=== PATIENT | male | born 1970 | race Caucasian/White ===

== ENCOUNTER 2021-01-26 13:31 | Emergency (ER) ==
[~2021-01-26] VITALS: Ht 182.9 cm; Wt 125.0 kg
[2021-01-26 13:32] VITALS: BP 167/92
== END 2021-01-26 16:19 | disposition left against medical advice (07) ==
LOC: M ED 13:31
DX: Z53.21 Procedure and treatment not carried out due to patient leaving prior to being seen by health care provider (principal)

== ENCOUNTER 2022-03-01 08:49 | Emergency (ER) | payer OTHER ==
[~2022-03-01] VITALS: Ht 182.9 cm; Wt 131.1 kg
[2022-03-01 13:46] VITALS: BP 170/104
== END 2022-03-01 14:00 | disposition home or self-care (01) ==
LOC: M ED 08:49
DX: S83.92XA Sprain of unspecified site of left knee, initial encounter (principal); M25.462 Effusion, left knee; M17.12 Unilateral primary osteoarthritis, left knee; X58.XXXA Exposure to other specified factors, initial encounter; Y92.099 Unspecified place in other non-institutional residence as the place of occurrence of the external cause; Y93.01 Activity, walking, marching and hiking; I10 Essential (primary) hypertension; E78.5 Hyperlipidemia, unspecified

== ENCOUNTER → 2022-03-13 | Outpatient (CLI) | payer OTHER | LOC: M SOG 08:05 | PROVIDERS: ATTEND Orthopaedic Surgery Adult Reconstructive Orthopaedic Surgery | DX: M17.0 Bilateral primary osteoarthritis of knee (principal); M25.562 Pain in left knee; M94.262 Chondromalacia, left knee ==

== ENCOUNTER → 2022-04-03 | Outpatient (CLI) | payer OTHER | LOC: M SOG 08:22 | PROVIDERS: ATTEND Orthopaedic Surgery | DX: M54.2 Cervicalgia (principal); M47.812 Spondylosis without myelopathy or radiculopathy, cervical region ==

== ENCOUNTER → 2023-04-23 | Outpatient (CLI) | payer OTHER | LOC: M SOG 09:37 | PROVIDERS: ATTEND Orthopaedic Surgery | DX: M17.0 Bilateral primary osteoarthritis of knee (principal) ==

== ENCOUNTER → 2023-10-22 | Outpatient (CLI) | payer OTHER ==
[2023-10-22 12:29] LABS: BASO # 0.1 10^3/uL (0.0-0.2); BASO % 0.5 % (0.0-1.0); EOS # 0.2 10^3/uL (0.0-0.5); EOS % 2.1 % (0.0-3.0); HEMATOCRIT 47.8 % (42.0-52.0); HEMOGLOBIN 16.3 g/dl (13.5-17.5); LYMPH # 2.4 10^3/uL (1.5-5.0); LYMPH % 26.3 % (24.0-44.0); MEAN CORPUSCULAR HEMOGLOBIN 30.8 pg (27.0-33.0); MEAN CORPUSCULAR HGB CONC 34.1 g/dl (32.0-36.5); MEAN CORPUSCULAR VOLUME 90.2 fl (80.0-96.0); MONO # 0.8 10^3/uL (0.0-0.8); MONO % 9.2 % (2.0-8.0); NEUTROPHILS # 5.6 10^3/uL (1.5-8.5); NEUTROPHILS % 61.2 % (36.0-66.0); PLATELET COUNT, AUTOMATED 210 10^3/uL (150-450); WHITE BLOOD COUNT 9.1 10^3/uL (4.0-10.0)
[2023-10-22 12:45] LABS: INR 0.94; PROTHROMBIN TIME 12.3 SECONDS (12.5-14.5)
[2023-10-22 12:52] LABS: ALKALINE PHOSPHATASE 78 U/L (46-116); ALT/SGPT 51 U/L (7.0-40); AST/SGOT 28 U/L (<34); BILIRUBIN,TOTAL 0.5 MG/DL (0.3-1.2); BLOOD UREA NITROGEN 21 MG/DL (9-23); CALCIUM LEVEL 8.7 MG/DL (8.5-10.1); CARBON DIOXIDE LEVEL 27 MMOL/L (20-31); CHLORIDE LEVEL 107 MMOL/L (98-107); CREATININE FOR GFR 0.84 MG/DL (0.70-1.30); GLOMERULAR FILTRATION RATE > 60.0 (>56); GLUCOSE, FASTING 95 MG/DL (60-100); POTASSIUM SERUM 4.7 MMOL/L (3.5-5.1); SODIUM LEVEL 138 MMOL/L (136-145); TOTAL PROTEIN 6.5 G/DL (5.7-8.2)
[2023-10-22 13:12] LABS: HEMOGLOBIN A1c 5.1 % (4.0-6.0)
== END ==
LOC: M PLALAB 09:36
PROVIDERS: ATTEND Orthopaedic Surgery
DX: M17.0 Bilateral primary osteoarthritis of knee (principal)

== ENCOUNTER → 2023-11-05 | Outpatient (CLI) | payer OTHER | LOC: M RAD 14:56 | PROVIDERS: ATTEND Orthopaedic Surgery | DX: M17.12 Unilateral primary osteoarthritis, left knee (principal) ==

== ENCOUNTER 2023-11-19 09:03 | Outpatient (RCR) | payer OTHER ==
[~2023-11-19 09:03] MED LIST: ALBU8.5H; AMLO1TAB25 PO; EUFL10IN; EZET10TA21 PO; NAPR-885 PO
[2023-11-19] MEDS ORDERED: ACET650T61 PO (10:36)
[2023-11-30] MEDS ORDERED: GABA-282 PO (15:42)
== END 2023-11-29 ==
LOC: M PT 09:03
PROVIDERS: ATTEND Orthopaedic Surgery
DX: M17.12 Unilateral primary osteoarthritis, left knee (principal)

== ENCOUNTER 2023-11-30 05:59 | Observation (INO) | payer OTHER ==
[~2023-11-30] VITALS: Ht 182.9 cm; Wt 132.6 kg
[2023-11-30] VITALS (10 sets, daily range): BP systolic 140–190; BP diastolic 72–104; TEMP 96.9–99.1; O2SAT 93–99
[~2023-11-30 05:59] MED LIST changes: +ACET650T61 PO
[2023-11-30] MEDS: LR 1,000 ML IV SCH ×2 (06:10→10:45)
[2023-11-30] MEDS ORDERED: LIDOCAINE 2% 100MG/5ML SDV (FOR ANES.) As Ordered ONE (07:02)
[2023-11-30] MEDS ORDERED: ACETAMINOPHEN 1000MG 100ML IV BAG As Ordered ONE (07:02)
[2023-11-30] MEDS ORDERED: ONDANSETRON 4MG 2ML VIAL As Ordered ONE (07:04)
[2023-11-30] MEDS ORDERED: MIDAZOLAM INJ 2MG/2ML VIAL As Ordered ONE (07:14)
[2023-11-30] MEDS ORDERED: fentaNYL 100 MCG/2 ML INJECTION As Ordered ONE (07:15)
[2023-11-30] MEDS ORDERED: ROPIvacaine 0.5% 30ML VIAL As Ordered ONE (07:22)
[2023-11-30] MEDS: ceFAZolin SOD 1 GM in DEXTROSE 5% (D5W) ADV/MINI-BAG 50 ML IV ONE (07:55)
[2023-11-30] MEDS: ceFAZolin SOD 2 GM in IV 1 EA IV ONE (07:55)
[2023-11-30] MEDS: REK 50ML SYRINGE IA ONE (08:00)
[2023-11-30] MEDS: TRANEXAMIC ACID 100 MG/ML 10ML VIAL As Ordered ONE (08:00)
[2023-11-30] MEDS ORDERED: ePHEDrine SULFATE 25 MG/5 ML(5MG/ML) SYRINGE As Ordered ONE (08:07)
[2023-11-30] MEDS ORDERED: propofoL 200 MG/20 ML VIAL As Ordered ONE (08:07)
[2023-11-30] MEDS ORDERED: PHENYLephrine 500MCG 5ML (100MCG/ML) SYRINGE As Ordered ONE (08:08)
[2023-11-30] MEDS ORDERED: HYDROmorphone HCL 2MG/ML 1ML VIAL As Ordered ONE (08:35)
[2023-11-30] MEDS ORDERED: ROCURONIUM BROMIDE 50MG/5ML VIAL As Ordered ONE (08:36)
[2023-11-30] MEDS ORDERED: SUGAMMADEX SODIUM 500 MG/5 ML VIAL (BRIDION) As Ordered ONE (08:46)
[2023-11-30] MEDS ORDERED: fentaNYL 100 MCG/2 ML INJECTION IV PRN (10:45)
[2023-11-30] MEDS: ONDANSETRON 4MG 2ML VIAL IV PRN (11:18)
[2023-11-30] MEDS: oxyCODONE 5MG TAB PO PRN ×2 (11:31→20:43)
[2023-11-30] MEDS: HYDROMORPHONE HCL 0.5 MG/ 0.5 ML SYRINGE IV PRN (11:31)
[2023-11-30] MEDS: PROMETHAZINE 25MG/ML 1ML VIAL IV ONE (11:46)
[2023-11-30] MEDS: ACETAMINOPHEN TAB 650MG DOSE (2X325MG) PO SCH (12:00)
[2023-11-30] MEDS ORDERED: SENNA 8.6 MG TAB (SENOKOT) PO PRN (12:00)
[2023-11-30] MEDS ORDERED: oxyCODONE 5MG TAB PO PRN (12:00)
[2023-11-30] MEDS ORDERED: ONDANSETRON 4MG 2ML VIAL IV PRN (12:00)
[2023-11-30] MEDS ORDERED: LR 1,000 ML IV SCH (13:00)
[2023-11-30] MEDS ORDERED: GABA-1172 PO (15:42)
[2023-11-30] MEDS ORDERED: HOME MED LIST COMPLETE! XX SCH (15:45)
[2023-11-30] MEDS: ceFAZolin SOD 2 GM in IV 1 EA IV SCH (18:13)
[2023-11-30] MEDS: DOCUSATE SODIUM 100MG CAPSULE PO SCH (20:43)
[2023-11-30] MEDS: NAPROXEN 250 MG TAB PO SCH (20:43)
[2023-11-30] MEDS: ASPIRIN 81MG ENTERIC TABLET PO SCH (21:00)
[2023-12-01] MEDS ORDERED: UNRESOLVED CLARIFICATION ENTRY XX SCH (00:01)
[2023-12-01 02:35] VITALS: BP 140/72; TEMP 97.5; O2SAT 94
[2023-12-01 05:23] VITALS: BP 149/85; TEMP 97; O2SAT 96
[2023-12-01 07:42] LABS: HEMATOCRIT 44.1 % (42.0-52.0); HEMOGLOBIN 14.9 g/dl (13.5-17.5); MEAN CORPUSCULAR HEMOGLOBIN 30.6 pg (27.0-33.0); MEAN CORPUSCULAR HGB CONC 33.8 g/dl (32.0-36.5); MEAN CORPUSCULAR VOLUME 90.6 fl (80.0-96.0); PLATELET COUNT, AUTOMATED 211 10^3/uL (150-450); RED BLOOD COUNT 4.87 10^6/uL (4.30-6.10); WHITE BLOOD COUNT 14.9 10^3/uL (4.0-10.0)
[2023-12-01 08:08] LABS: ALBUMIN 3.8 G/DL (3.2-5.2); ALKALINE PHOSPHATASE 62 U/L (46-116); ALT/SGPT 34 U/L (7.0-40); AST/SGOT 17 U/L (<34); BILIRUBIN,TOTAL 0.6 MG/DL (0.3-1.2); BLOOD UREA NITROGEN 16 MG/DL (9-23); CALCIUM LEVEL 9.3 MG/DL (8.5-10.1); CARBON DIOXIDE LEVEL 28 MMOL/L (20-31); CHLORIDE LEVEL 105 MMOL/L (98-107); CREATININE FOR GFR 0.83 MG/DL (0.70-1.30); GLOMERULAR FILTRATION RATE > 60.0 (>56); GLUCOSE, FASTING 102 MG/DL (60-100); POTASSIUM SERUM 4.2 MMOL/L (3.5-5.1); SODIUM LEVEL 139 MMOL/L (136-145); TOTAL PROTEIN 6.2 G/DL (5.7-8.2)
[2023-12-01] MEDS ORDERED: ASPI81TAEC PO (08:47)
[2023-12-01] MEDS ORDERED: OXYC1TAB23 PO (08:47)
[2023-12-01] MEDS ORDERED: CEFA500C2 PO (08:47)
[2023-12-01 09:06] VITALS: BP 156/72
[2023-12-01] MEDS: FERROUS SULFATE 325MG TAB PO SCH (09:06)
[2023-12-01] MEDS: EZETIMIBE 10MG TABLET (ZETIA) PO SCH (09:07)
[2023-12-01] MEDS: ASCORBIC ACID 500 MG TAB PO SCH (09:07)
[2023-12-01 10:00] VITALS: BP 166/84; TEMP 97.7; O2SAT 97
== END 2023-12-01 11:50 | disposition home or self-care (01) ==
LOC: M SDC 05:59 → M RR INP 06:00 → M MS5PR 12:45
PROVIDERS: ADMIT Orthopaedic Surgery; ATTEND Orthopaedic Surgery
DX: M17.12 Unilateral primary osteoarthritis, left knee (principal)
CPT/HCPCS: 27447; 36415; 73560; 80053; 85027; 88300; 96365; 96366; 97116; 97161; 97530; C1713; C1776; J0131; J0171; J0690; J1100; J1171; J1885; J2250; J2371; J2405; J2550; J2795; J3010; S2900

== ENCOUNTER → 2023-12-13 | Outpatient (CLI) | payer OTHER ==
[~2023-12-13] MED LIST changes: +ASPI81TAEC PO; +CEFA500C2 PO; +GABA-1172 PO; +OXYC1TAB23 PO
== END ==
LOC: M SOG 07:53
PROVIDERS: ATTEND Orthopaedic Surgery
DX: Z96.652 Presence of left artificial knee joint (principal); Z47.1 Aftercare following joint replacement surgery

== ENCOUNTER 2025-01-28 12:38 | Emergency (ER) | payer OTHER ==
[~2025-01-28] VITALS: Ht 182.9 cm; Wt 136.3 kg
[~2025-01-28 12:38] MED LIST changes: -EZET10TA21 PO; +EZET10TA57 PO
[2025-01-28 13:32] LABS: BASO # 0.1 10^3/uL (0.0-0.2); BASO % 0.5 % (0.0-1.0); EOS # 0.2 10^3/uL (0.0-0.5); EOS % 0.9 % (0.0-3.0); LYMPH # 1.8 10^3/uL (1.5-5.0); LYMPH % 10.9 % (24.0-44.0); MONO # 1.6 10^3/uL (0.0-0.8); MONO % 9.4 % (2.0-8.0); NEUTROPHILS # 13.1 10^3/uL (1.5-8.5); NEUTROPHILS % 78.1 % (36.0-66.0); PLATELET COUNT, AUTOMATED 201 10^3/uL (150-450)
[2025-01-28 13:37] LABS: KETONE, URINE AUTO RFX NEGATIVE (NEGATIVE); LEUKOCYTE ESTERASE UR AUTO RFX NEGATIVE (NEGATIVE); MUCUS, URINE RFX SMALL (NEGATIVE); NITRITE, URINE AUTO RFX NEGATIVE (NEGATIVE); RBC, URINE AUTO RFX 2 /HPF (0-3); SQUAM EPITHELIAL CELL UR AURFX 0 /HPF (0-6); WBC, URINE AUTO RFX 1 /HPF (0-3)
[2025-01-28] MEDS: ONDANSETRON 4MG/2ML VIAL IV ONE (13:41)
[2025-01-28] MEDS: KETOROLAC 30 MG/ML 1 ML VIAL IV ONE (13:41)
[2025-01-28 14:03] LABS: CALCIUM LEVEL 8.9 MG/DL (8.5-10.1); CARBON DIOXIDE LEVEL 28.0 MMOL/L (20-31); CHLORIDE LEVEL 104.0 MMOL/L (98-107); CREATININE FOR GFR 1.04 MG/DL (0.70-1.30); GLOMERULAR FILTRATION RATE 85.3 (>56); POTASSIUM SERUM 4.4 MMOL/L (3.5-5.1); SODIUM LEVEL 142.0 MMOL/L (136-145)
[2025-01-28] MEDS ORDERED: ONDA-282 PO (15:25)
[2025-01-28] MEDS ORDERED: TAMS1CAP17 PO (15:25)
[2025-01-28] MEDS ORDERED: PERC5TAB12 PO (15:25)
[2025-01-28] MEDS ORDERED: KETO-204 PO (15:25)
[2025-01-28 15:30] VITALS: BP 150/65; O2SAT 97
[2025-01-28 15:45] VITALS: TEMP 99.2
== END 2025-01-28 15:47 | disposition home or self-care (01) ==
LOC: M ED 13:06
DX: N20.1 Calculus of ureter (principal); I10 Essential (primary) hypertension; E78.5 Hyperlipidemia, unspecified; Z79.899 Other long term (current) drug therapy
CPT/HCPCS: 74176; 80048; 81001; 85025; 96374; 96375; 99284; J1885; J2405